=== PATIENT | female | born 1965 | race Hispanic/Latino ===

== ENCOUNTER 2018-06-05 07:51 | Day surgery (SDC) | payer BC ==
[2018-06-01 09:18] VITALS: BMI 25.1
[2018-06-05] MEDS ORDERED: Lactated Ringer's 1,000 ML IV ONE (09:00)
[2018-06-05] MEDS ORDERED: Midazolam 2 MG/2 ML VIAL ONE (09:18)
[2018-06-05] MEDS ORDERED: Sodium Chloride 0.9% 10 ML IV ONE (09:18)
[2018-06-05] MEDS ORDERED: Propofol 10 mg/ml Inj (20 ML) ONE (09:18)
[2018-06-05] MEDS ORDERED: Phenylephrine 10 mg/ml Inj ONE ×2 (09:18)
[2018-06-05] MEDS ORDERED: Rocuronium 10 mg/ml (5 ml) ONE (09:18)
[2018-06-05] MEDS ORDERED: Succinylcholine 200 mg/10 ml Inj IV ONE (09:22)
--- NOTE | 2018-06-05 09:24 | CP.SDSHP ---
Same Day Surgery H & P - History Proposed Procedure: Hysteroscopy for removal of retained IUD Pre-Op Diagnosis: same - Allergies Allergies: Allergies No Known Allergies Allergy (Verified 06/05/18 08:04) - Physical Exam Vital Signs: Vital Signs 06/05/18 06/05/18 08:51 09:00 Temperature 98.2 F Pulse Rate 65 65 Respiratory 18 Rate Blood Pressure 109/75 O2 Sat by Pulse 98 Oximetry Mental Status: Alert & Oriented x3 Neuro: WNL Heart: WNL Lungs: WNL GI: WNL - {Optional Preform as Required} Abdomen: WNL MORTGAGE COORDINATOR: WNL Ortho: WNL ENT: WNL - Impression Pt. Evaluated Today:Candidate for Anesthesia & Procedure: Yes - Date & Time Date: 06/05/18 Time: 09:24 Short Stay Discharge - Short Stay Discharge Admitting Diagnosis/Reason for Visit: Z53.8 Disposition: HOME/ ROUTINE
[2018-06-05 10:49] VITALS: O2SAT 100
[2018-06-05 12:34] VITALS: RESP 18
[2018-06-05 13:35] VITALS: BP 107/66; PULSE 66; TEMP 97.4
--- NOTE | 2018-06-06 03:30 | OP ---
PROCEDURE DATE: 06/05/2018 SURGEON: Radha Bloom MD PREOPERATIVE DIAGNOSIS: Retained IUD. POSTOPERATIVE DIAGNOSIS: Retained IUD removed under anesthesia successfully. PROCEDURE: Removal of IUD under anesthesia with possible hysteroscopy. ESTIMATED BLOOD LOSS: None. URINE OUTPUT: 25 mL clear. TOTAL FLUID INPUT: 800 mL of lactated Ringer's. COMPLICATIONS: None. CONDITION: Stable. PATHOLOGY OF SPECIMEN: IUD. INDICATION: This is a 52-year-old G3, P3 postmenopausal female with and IUD in place for the past four years. The patient came for regular interval checkup with unsuccessful removal of IUD despite multiple attempts and with instrumentation in the office. It was discussed with the patient to proceed with removal under anesthesia in order to successfully remove the device. The patient was advised of the risks and benefits of procedure including risks of bleeding and possible perforation. She was also advised that she would possibly need to have hysteroscopy to aid in removal. The patient was also given Cytotec preoperatively or to help with cervical dilation. The patient was scheduled for perioperative procedure. DESCRIPTION OF PROCEDURE: The patient was taken to the OR. IV fluids were started successfully. The patient was placed under LMA without any complications, prepped and draped in normal sterile fashion in the dorsal supine position with legs in the candy-cane stirrups. The bladder was drained with a red-tip catheter about 25 mL of urine. A metal speculum was inserted and residual Cytotec was removed with sponge stick. Hegar dilators were used in order to dilate the patient slightly and then with IUD removal device was successfully able to remove the IUD without complications in entirety. The IUD specimen was sent to the pathologist. The single-tooth tenaculum was placed at the anterior lip of the cervix and was to just help with instrumentation. All instruments removed from the cervix and the vagina without difficulty. There was no bleeding noted. The patient was cleaned and awoken from Anesthesia and taken to recovery room with instructions for followup in the office in two weeks. There were no complications. Radha Bloom MD
== END 2018-06-05 14:25 | disposition home or self-care (01) ==
LOC: H.OPSURG 07:51
PROVIDERS: ATTEND Obstetrics & Gynecology
DX: Z53.8 Procedure and treatment not carried out for other reasons (principal); E78.5 Hyperlipidemia, unspecified; Z78.0 Asymptomatic menopausal state
CPT/HCPCS: 58562; 88304; J0330; J2001; J2250; J2370; J2405; J2704; J3010; J7120